=== PATIENT | female | born 1975 | race African-American/Black ===

== ENCOUNTER 2025-04-07 08:37 | Emergency (ER) | payer SELFPAY ==
[~2025-04-07] VITALS: Ht 167.6 cm; Wt 75.0 kg
[2025-04-07] MEDS: OLANZAPINE 10 MG/VIAL IM ONE (09:04)
[2025-04-07] MEDS: DIPHENHYDRAMINE 50MG/ML VIAL IM ONE (09:04)
[2025-04-07] MEDS: LORAZEPAM 2MG/ML UD SYRINGE IM SCH (09:04)
[2025-04-07 09:19] VITALS: O2SAT 98
[2025-04-07 10:04] LABS: BASOPHILS % 0.1 % (0.0-2.0); EOSINOPHILS % 0.1 % (0.0-5.0); HEMATOCRIT. 35.5 % (36.0-48.0); HEMOGLOBIN. 12.0 g/dL (12.0-16.0); LYMPHOCYTES % 8.0 % (20.0-50.0); MEAN PLATELET VOLUME 8.0 fl (7.4-10.4); MONOCYTES % 6.0 % (2.0-8.0); NEUTROPHILS % 85.8 % (40.0-76.0); PLATELET 284 x1000/uL (130-400); RED BLOOD CELL COUNT 3.83 mill/uL (4.2-5.4); RED CELL DISTRIBUTION WIDTH 13.7 % (11.6-14.6)
[2025-04-07 10:13] LABS: CREATININE 0.8 mg/dL (0.6-1.0); ETHANOL BLOOD < 10 mg/dL (<10); UREA NITROGEN BLOOD 14 mg/dL (9-23)
[2025-04-07 10:15] LABS: ASPARTATE AMINOTRANSFERASE 47 IU/L (<34); BILIRUBIN DIRECT 0.2 mg/dL (<=3.0); BILIRUBIN TOTAL 1.1 mg/dL (0.1-1.0); PROTEIN TOTAL 7.2 g/dL (6.0-8.3)
[2025-04-07 20:11] LABS: HCG SCREEN NEGATIVE
[2025-04-07 20:28] LABS: CLARITY URINE TURBID (CLEAR); COLOR URINE DARK YELLOW (YELLOW); GLUCOSE URINE NEGATIVE (NEGATIVE); KETONES URINE 3+ (NEGATIVE); LEUKOCYTE ESTERASE URINE 1+ (NEGATIVE); NITRITE URINE NEGATIVE (NEGATIVE); OCCULT BLOOD URINE NEGATIVE (NEGATIVE); PH URINE 6.5 (4.5-8.0); PROTEIN URINE 1+ (NEGATIVE); SPECIFIC GRAVITY URINE 1.030 (1.005-1.030); UROBILINOGEN URINE 1.0 E.U./dL (0.2-1.0)
[2025-04-07 20:39] LABS: BACTERIA URINE 3+; RBC URINE 0-2 /hpf (0-2)
[2025-04-07 20:40] LABS: AMORPHOUS SEDIMENT URINE 1+ /lpf; SQUAMOUS EPITHELIAL CELL URINE 1+ /lpf (RARE/1+)
[2025-04-07 20:47] LABS: *AMPHETAMINES SCREEN URINE NEGATIVE (NEGATIVE); *BARBITURATES SCREEN URINE NEGATIVE (NEGATIVE); *BENZODIAZEPINES SCREEN URINE NEGATIVE (NEGATIVE); *COCAINE SCREEN URINE NEGATIVE (NEGATIVE); CANNABINOID URINE SCREEN NEGATIVE (NEGATIVE); ECSTASY MDMA SCREEN URINE NEGATIVE (NEGATIVE); METHADONE URINE SCREEN NEGATIVE (NEGATIVE); OPIATES URINE SCREEN NEGATIVE (NEGATIVE); PHENCYCLIDINE URINE SCREEN NEGATIVE (NEGATIVE)
[2025-04-08] MEDS: POTASSIUM CHLORIDE 20MEQ TABLET SR PO ONE (09:50)
[2025-04-08 10:02] VITALS: BP 110/65; PULSE 80; RESP 16; TEMP 36.8; O2SAT 98
== END 2025-04-08 10:05 | disposition home or self-care (01) ==
LOC: ER 08:45
DX: R45.1 Restlessness and agitation (principal); F41.0 Panic disorder [episodic paroxysmal anxiety]; F43.10 Post-traumatic stress disorder, unspecified; Z79.899 Other long term (current) drug therapy; Z20.822 Contact with and (suspected) exposure to COVID-19
CPT/HCPCS: 80076; 80305; 80048; 81003; 80307; 80329; 80320; 84703; 85025; 36415; 70450; 93005; 96372; 99291; 87426; J3490; J1200; J2060; Z7610; G0480